=== PATIENT | female | born 1960 | race Caucasian/White ===

== ENCOUNTER 2016-10-20 20:05 | Inpatient (IN) | payer OTHER ==
[~2016-10-20] VITALS: Ht 170.2 cm; Wt 114.5 kg
[~2016-10-20 20:05] MED LIST: HIB240 TP; HYDRALAZINE HYD50 MG PO; LABETALOL HCL200 MG PO; LOP50 PO; ZES20 PO
[2016-10-20 21:38] LABS: BASOPHIL % 0.4 % (0-2); PLATELET COUNT 309 x10^3mcL (130-400)
[2016-10-20 21:39] LABS: RED CELL DISTRIBUTION WIDTH 15.8 % (11.5-14.5)
[2016-10-20 21:46] LABS: CALCIUM 9.3 mg/dL (8.5-10.1); CARBON DIOXIDE 28.5 mmol/L (21-32); CHLORIDE SERUM 103 mmol/L (98-107); CREATININE SERUM 0.8 mg/dL (0.6-1.0); GFR1 > 60 mL/min; GLUCOSE SERUM 143 mg/dL (74-106); SODIUM SERUM 142 mmol/L (136-145)
[2016-10-20 21:50] LABS: ALKALINE PHOSPHATASE 98 U/L (46-116); ALT/SGPT 65 U/L (14-59); AST/SGOT 46 U/L (15-37); BILIRUBIN TOTAL 0.71 mg/dL (0.20-1.00); LIPASE 125 IU/L (73-393); TOTAL PROTEIN, SERUM 7.4 g/dL (6.4-8.2)
[2016-10-20 21:52] LABS: ALBUMIN 3.3 g/dL (3.4-5.0)
[2016-10-20 23:52] LABS: T3 TOTAL 1.21 ng/mL
[2016-10-21] VITALS (9 sets, daily range): BP systolic 113–188; BP diastolic 44–123
[2016-10-21 00:36] LABS: MAGNESIUM 1.8 mg/dL (1.8-2.4); PHOSPHOROUS 4.1 mg/dL (2.5-4.9)
[2016-10-21 00:39] LABS: CHOLESTEROL/HDL RATIO 5.1
[2016-10-21 00:48] LABS: FREE T4 1.17 ng/dL (0.76-1.46); FREE THYROXINE INDEX 3.1 ug/dL (1.4-4.5); T4(THYROXINE) 9.6 ug/dL (4.7-13.3)
[2016-10-21 01:10] LABS: UA SPECIFIC GRAVITY >=1.030 (1.005-1.035); microscopic required? YES; urine erythrocyte TRACE (NEGATIVE)
[2016-10-21 01:28] LABS: AMPHETAMINE QUAL UR POSITIVE (NEG <=1000)
[2016-10-21 06:36] LABS: BASOPHIL % 0.4 % (0-2); PLATELET COUNT 277 x10^3mcL (130-400)
[2016-10-21 06:37] LABS: RED CELL DISTRIBUTION WIDTH 16.2 % (11.5-14.5)
[2016-10-21 06:48] LABS: CALCIUM 8.8 mg/dL (8.5-10.1); CARBON DIOXIDE 24.8 mmol/L (21-32); CHLORIDE SERUM 100 mmol/L (98-107); CREATININE SERUM 0.7 mg/dL (0.6-1.0); GFR1 > 60 mL/min; GLUCOSE SERUM 133 mg/dL (74-106); MAGNESIUM 1.9 mg/dL (1.8-2.4); POTASSIUM SERUM 3.6 mmol/L (3.5-5.1); SODIUM SERUM 140 mmol/L (136-145)
[2016-10-22 05:37] VITALS: BP 122/70
[2016-10-22 06:15] LABS: BASOPHIL % 0.4 % (0-2); PLATELET COUNT 245 x10^3mcL (130-400)
[2016-10-22 06:34] LABS: RED CELL DISTRIBUTION WIDTH 16.5 % (11.5-14.5)
[2016-10-22 06:46] LABS: ALKALINE PHOSPHATASE 84 U/L (46-116); ALT/SGPT 85 U/L (14-59); AST/SGOT 83 U/L (15-37); BILIRUBIN TOTAL 0.49 mg/dL (0.20-1.00); CALCIUM 8.4 mg/dL (8.5-10.1); CHLORIDE SERUM 105 mmol/L (98-107); CREATININE SERUM 0.8 mg/dL (0.6-1.0); GFR1 > 60 mL/min; GLUCOSE SERUM 156 mg/dL (74-106); POTASSIUM SERUM 4.4 mmol/L (3.5-5.1); SODIUM SERUM 140 mmol/L (136-145); TOTAL PROTEIN, SERUM 6.2 g/dL (6.4-8.2)
[2016-10-22 06:48] LABS: ALBUMIN 2.8 g/dL (3.4-5.0)
[2016-10-22 09:34] VITALS: BP 156/97
[2016-10-22 14:03] VITALS: BP 119/78
[2016-10-22 14:20] VITALS: BP 119/78
[2016-10-22 16:16] VITALS: Ht 170.2 cm; Wt 114.5 kg
[2016-10-22 17:00] VITALS: BP 139/81
[2016-10-22 21:23] VITALS: BP 150/97
[2016-10-23] MEDS ORDERED: GOOD SENSE ASPI81 M3 PO (01:13)
[2016-10-23] MEDS ORDERED: CYMBALTA30 M1 PO (01:19)
[2016-10-23 06:06] VITALS: BP 145/96
[2016-10-23 07:16] LABS: BASOPHIL % 0.4 % (0-2); PLATELET COUNT 250 x10^3mcL (130-400)
[2016-10-23 07:21] LABS: ALKALINE PHOSPHATASE 90 U/L (46-116); ALT/SGPT 107 U/L (14-59); AST/SGOT 79 U/L (15-37); BILIRUBIN TOTAL 0.39 mg/dL (0.20-1.00); CALCIUM 8.2 mg/dL (8.5-10.1); CARBON DIOXIDE 22.6 mmol/L (21-32); CHLORIDE SERUM 107 mmol/L (98-107); CREATININE SERUM 0.7 mg/dL (0.6-1.0); GFR1 > 60 mL/min; GLUCOSE SERUM 125 mg/dL (74-106); POTASSIUM SERUM 4.2 mmol/L (3.5-5.1); SODIUM SERUM 139 mmol/L (136-145); TOTAL PROTEIN, SERUM 6.5 g/dL (6.4-8.2)
[2016-10-23 07:24] LABS: ALBUMIN 2.9 g/dL (3.4-5.0)
[2016-10-23 09:36] VITALS: BP 159/83
[2016-10-23 12:16] VITALS: BP 127/47
[2016-10-23 14:55] VITALS: BP 120/60
[2016-10-23 17:26] VITALS: BP 131/70
[2016-10-23 21:40] VITALS: BP 157/87
[2016-10-24 06:41] LABS: PLATELET COUNT 261 x10^3mcL (130-400)
[2016-10-24 06:49] LABS: CALCIUM 8.8 mg/dL (8.5-10.1); CARBON DIOXIDE 25.3 mmol/L (21-32); CHLORIDE SERUM 104 mmol/L (98-107); CREATININE SERUM 0.7 mg/dL (0.6-1.0); GFR1 > 60 mL/min; GLUCOSE SERUM 127 mg/dL (74-106); MAGNESIUM 2.1 mg/dL (1.8-2.4); PHOSPHOROUS 3.3 mg/dL (2.5-4.9); POTASSIUM SERUM 4.1 mmol/L (3.5-5.1); SODIUM SERUM 137 mmol/L (136-145)
[2016-10-24 06:51] VITALS: BP 153/88
[2016-10-24 06:56] LABS: RED CELL DISTRIBUTION WIDTH 17.1 % (11.5-14.5)
[2016-10-24 06:59] VITALS: BP 179/97
[2016-10-24 07:50] VITALS: BP 174/100
[2016-10-24 09:30] VITALS: BP 130/68
[2016-10-24 11:51] LABS: BAND NEUTROPHIL 1 % (0-10); BASOPHIL 0 % (0-2); MONOCYTE 2 % (0-7); SEGMENTED NEUTROPHILS 80 % (37-75)
[2016-10-24 11:52] LABS: PLATELET MORPHOLOGY PLATELETS NORMAL; rbc morphology (normal/abnorm) ABNORMAL (NORMAL)
[2016-10-24 12:56] VITALS: BP 160/94
[2016-10-24 14:02] VITALS: BP 160/94
[2016-10-24] MEDS ORDERED: SERTRALINE50 M1 PO (16:05)
[2016-10-24] MEDS ORDERED: ZES20 PO (16:05)
[2016-10-24] MEDS ORDERED: TRA100 PO (16:05)
[2016-10-24] MEDS ORDERED: LASIX20 MG PO (16:05)
[2016-10-24] MEDS ORDERED: APR25 PO (16:05)
[2016-10-24] MEDS ORDERED: CYMBALTA30 M1 PO (16:06)
== END 2016-10-24 16:08 | disposition home or self-care (01) | DRG 720 ==
LOC: ED 20:05 → DU 21:59
PROVIDERS: Emergency Medicine; Family Medicine; ADMIT Family Medicine
DX: A41.9 Sepsis, unspecified organism (principal); N17.0 Acute kidney failure with tubular necrosis; I16.0 Hypertensive urgency; E44.0 Moderate protein-calorie malnutrition; R73.03 Prediabetes; K42.9 Umbilical hernia without obstruction or gangrene; N39.0 Urinary tract infection, site not specified; R65.20 Severe sepsis without septic shock; K21.9 Gastro-esophageal reflux disease without esophagitis; F12.10 Cannabis abuse, uncomplicated; F17.210 Nicotine dependence, cigarettes, uncomplicated; E11.9 Type 2 diabetes mellitus without complications; F32.1 Major depressive disorder, single episode, moderate; E66.9 Obesity, unspecified; E78.5 Hyperlipidemia, unspecified; E78.1 Pure hyperglyceridemia; R74.0 Nonspecific elevation of levels of transaminase and lactic acid dehydrogenase [LDH]; K76.0 Fatty (change of) liver, not elsewhere classified; Z59.0 Homelessness; Z68.39 Body mass index [BMI] 39.0-39.9, adult; Z91.19 Patient's noncompliance with other medical treatment and regimen; Z82.49 Family history of ischemic heart disease and other diseases of the circulatory system; Z88.0 Allergy status to penicillin; Z88.1 Allergy status to other antibiotic agents; Z72.89 Other problems related to lifestyle; I25.2 Old myocardial infarction; Z83.3 Family history of diabetes mellitus
CPT/HCPCS: 82962; 83880; 84439; G0480; J0696; J1940; J2270; J2405; J3490; J7030